=== PATIENT | female | born 1960 | race African-American/Black ===

== ENCOUNTER 2018-10-18 23:21 | Emergency (ER) | payer BC ==
[~2018-10-18] VITALS: Ht 165.1 cm; Wt 82.0 kg
[2018-10-19] MEDS ORDERED: metroprolol (00:14)
[2018-10-19 01:20] VITALS: BP 176/93
== END 2018-10-19 01:30 | disposition home or self-care (01) ==
LOC: ER 23:21
DX: I10 Essential (primary) hypertension (principal)
CPT/HCPCS: 99283